=== PATIENT | male | born 1995 | race Caucasian/White ===

== ENCOUNTER 2022-08-27 01:10 | Emergency (ER) | payer MEDICAID, SELFPAY ==
[2022-08-27 01:14] VITALS: BP 155/101; PULSE 94; RESP 18; TEMP 36.6; O2SAT 94; BMI 29.3
[2022-08-27] MEDS: 0.9% Normal Saline 1,000 ML 999 ML IV (01:55)
[2022-08-27 02:20] LABS: Anion Gap 5 (5-15); BUN 16 mg/dL (7-18); BUN/Creat Ratio 11.5 RATIO (10-20); Calcium,Total 9.4 mg/dL (8.5-10.1); Chloride 107 mmol/L (98-107); Creatinine, Serum 1.39 mg/dL (0.70-1.30); EST Glomerular Filtration Rate 65 mL/min (>60); Est Glom Filt Rate - Afr Amer 78 mL/min (>60); Estimated Creatinine Clearance 92.81 ml/min; Glucose 104 mg/dL (74-106); Magnesium 2.6 mg/dL (1.6-2.6); Potassium 3.8 mmol/L (3.5-5.1); Sodium Level 140 mmol/L (136-145)
--- NOTE | 2022-08-27 02:54 | EDS_ITS ---
HPI History of Present Illness Chief Complaint: General Illness Informant: patient and EMS Narrative Narrative: Patient is a 26-year-old male with anxiety depression bipolar disorder and asthma. EMS states that he called them because he got into a verbal argument with his girlfriend and got kicked out of the car and he had been walking for 2 hours. They state that he was unable to get anyone to come pick him up and he felt like he was becoming dehydrated as he was exposed to the elements for the past 2 hours and with this has concern for dehydration and comes in for evaluation. Patient states that there is been no bouts of nausea vomiting or diarrhea and he denies any known sick contacts [facility] Medical History Anxiety Bipolar 1 disorder Depression Psychosis Home Medications albuterol sulfate 90 mcg/actuation breath activated powder inhaler 2 inh inhalation Q6H 08/27/22 [History Last Taken Unknown] fluticasone propionate 115 mcg-salmeterol 21 mcg/actuation HFA inhaler (Advair HFA) 2 inh inhalation Q12H 08/27/22 [History Last Taken Unknown] Allergy/AdvReac Type Severity Reaction Status Date / Time No Known Allergies Allergy Verified 08/27/22 02:19 Social History Smoking Status: Current every day smoker tobacco type: e-cigarettes ROS ROS ED Constitutional Constitutional ED: Denies chills or fever(s) ENT ENT ED: Denies sore throat Cardiovascular Cardiovascular: Denies chest pain Respiratory/Chest Respiratory/Chest: Denies cough or dyspnea Gastrointestinal Gastrointestinal: Denies abdominal pain, diarrhea, nausea or vomiting Genitourinary Genitourinary ED: Denies dysuria Musculoskeletal Musculoskeletal: Denies myalgias Integumentary Denies rash Neurologic Neurologic: Denies headache(s) Hematologic/Lymphatic Hematologic/Lymphatic: Denies easy bleeding or easy bruising EXAM Physical Exam Const Vital Signs: 08/27/22 01:14 08/27/22 01:18 Temperature 97.9 F Temperature Source Temporal Pulse Rate 94 Respiratory Rate 18 Respiratory Pattern Normal Blood Pressure 155/101 H Blood Pressure Mean 119 Pulse Ox 94 Oxygen Delivery Method Room Air Positive well nourished and well developed General Appearance ED: well developed HEENT HEENT Narrative: Mucous membranes are slightly dry and tacky No oral lesions airway edema or compromise No signs of infection in the posterior pharynx Eyes PERRL and EOMs intact bilaterally General Eye ED: Negative for scleral icterus Neck supple Resp normal respiratory effort and clear to auscultation bilaterally Cardio regular rate and regular rhythm Rate: other Other Details: Radial pulses are plus 2 out of 4 bilaterally are equal and symmetric GI normal to inspection, nondistended, normoactive bowel sounds, non-tender, non- distended and no masses GI Narrative: No voluntary guarding or rigidity no pulsatile mass or fluid wave Auscultation: normoactive bowel sounds Palpation: soft Extremity normal to inspection Neuro oriented x3 and CN's II-XII intact bilaterally Sensorium / Orientation: alert Psych Psych Narrative: Patient has a flat affect Skin no rashes or lesions noted and skin turgor normal General Skin Exam: Negative for jaundice MDM MDM MDM Narrative Medical decision making narrative: Patient presented to the ER with stable vitals and reported exposure to the elements but denied any recent nausea vomiting diarrhea. Differential diagnosis includes acute dehydration versus acute kidney injury versus electrolyte derangement. his exam shows mildly dry mucous membranes and with his concern for dehydration did elect to perform basic laboratory studies looking at electrolytes and kidney function. Creatinine is just slightly elevated at 1.39 which is consistent with mild dehydration but there are no electrolyte derangements. Therefore patient was given 1 L of IV fluid and as this would be sufficient to replace any volume loss from exposure he is otherwise safe for discharge. History & Record Review Discussion w/independent historian: EMS personnel and Patient Lab Data Attestation: I reviewed the patient's lab results. Labs: Laboratory Results - last 24 hr 08/27/22 01:40 Sodium 140 Potassium 3.8 Chloride 107 Carbon Dioxide 28.0 Anion Gap 5 BUN 16 Creatinine 1.39 H Estim Creat Clear Calc 92.81 Est GFR (MDRD) Af Amer 78 Est GFR (MDRD) Non-Af 65 BUN/Creatinine Ratio 11.5 Glucose 104 Calcium 9.4 Magnesium 2.6 Discharge Plan Triage Chief Complaint: General Illness ED Provider: Mauri Villanueva Dx/Rx/DC Orders Clinical Impression: Mild dehydration Instructions: Dehydration Prescriptions: No Action albuterol sulfate 90 mcg/actuation aerosol powdr breath activated 2 inh inhalation Q6H fluticasone propion-salmeterol [Advair HFA] 115-21 mcg/actuation HFA aerosol inhaler 2 inh inhalation Q12H Primary Care Provider: Maria A Rolle NP Referrals: Maria A Rolle NP, SOCIAL SERVICE ASSISTANT-C [Primary Care Provider] - Disposition Disposition: Home, Self Care Discharge Date/Time: 08/27/22 03:14
== END 2022-08-27 03:14 | disposition home or self-care (01) ==
PROVIDERS: Emergency Provider Emergency Medicine; PCP Nurse Practitioner Family; Visit Provider Emergency Medicine
DX: E86.0 Dehydration (principal); F17.290 Nicotine dependence, other tobacco product, uncomplicated
CPT/HCPCS: 80048; 83735

== ENCOUNTER 2022-08-27 05:55 | Emergency (ER) | payer MEDICAID, SELFPAY ==
[2022-08-27 05:55] VITALS: BP 114/97; PULSE 92; RESP 15; TEMP 36.4; O2SAT 98; BMI 29.8
--- NOTE | 2022-08-27 06:09 | EKG12_ITS ---
Test Reason : SYNCOPE Blood Pressure : / mmHG Vent. Rate : 057 BPM Atrial Rate : 057 BPM P-R Int : 134 ms QRS Dur : 082 ms QT Int : 420 ms P-R-T Axes : 022 064 030 degrees QTc Int : 408 ms Sinus bradycardia Otherwise normal ECG Confirmed by EL MONTILLA, ANNA ([id number]), graphics editor ALICIA DAMON ([id number]) on 08/28/2022 11:03:31 AM Referred By: Confirmed By:ANNA GALLEGOS MD
--- NOTE | 2022-08-27 06:09 | RAD_ITS ---
EXAM: XR CHEST, 2 VIEWS CLINICAL INDICATION: syncope TECHNIQUE: Frontal and lateral views of the chest. COMPARISON: No relevant prior studies available. FINDINGS: LUNGS AND PLEURAL SPACES: Unremarkable. No consolidation or edema. No pneumothorax. No effusion. HEART: Unremarkable. Cardiac silhouette not enlarged. MEDIASTINUM: Central airways and mediastinal contour are unremarkable. BONES/JOINTS: Unremarkable. SOFT TISSUES: Unremarkable. RAD/Chest PA and Lateral IMPRESSION: No radiographic evidence of acute cardiopulmonary disease. Electronically Signed: Kaylah Uriarte MD at 6:49 EDT ,
--- NOTE | 2022-08-27 07:00 | EX.ED.DYSGE1 ---
HPI History of Present Illness Chief Complaint: Syncope Informant: patient Narrative Narrative: Patient is a 26-year-old male with history of depression and anxiety and bipolar as well as asthma. He was seen earlier today after getting into a verbal argument with his girlfriend and being kicked out of the car and having to walk for 2 hours. He was concerned about dehydration at that time because of his element exposure and basic blood work was obtained which revealed no clinically significant findings and he was rehydrated 1 L of fluid. Patient was discharged and went to the waiting room as he did not have a ride. Patient states he was sitting in the waiting room for a few hours and he stood up and began to walk around when he started to feel lightheaded and dizzy and secondary to this checks back in for evaluation. He also reports he has now noticed some pain in his left wrist that worsens with extension [facility] Medical History Anxiety Bipolar 1 disorder Depression Psychosis Home Medications albuterol sulfate 90 mcg/actuation breath activated powder inhaler 2 inh inhalation Q6H 08/27/22 [History Last Taken Unknown] fluticasone propionate 115 mcg-salmeterol 21 mcg/actuation HFA inhaler (Advair HFA) 2 inh inhalation Q12H 08/27/22 [History Last Taken Unknown] Allergy/AdvReac Type Severity Reaction Status Date / Time No Known Allergies Allergy Verified 08/27/22 02:19 Social History Smoking Status: Current every day smoker tobacco type: e-cigarettes ROS ROS ED Constitutional Constitutional ED: Denies chills or fever(s) ENT ENT ED: Denies sore throat Cardiovascular Cardiovascular: Reports other Details: Positive lightheadedness/dizziness ; Denies chest pain, palpitations or racing heartbeat Respiratory/Chest Respiratory/Chest: Denies cough or dyspnea Gastrointestinal Gastrointestinal: Denies abdominal pain, diarrhea, nausea or vomiting Genitourinary Genitourinary ED: Denies dysuria Musculoskeletal Musculoskeletal: Reports other Details: Positive left wrist pain Integumentary Denies rash Neurologic Neurologic: Denies headache(s) Hematologic/Lymphatic Hematologic/Lymphatic: Denies easy bleeding or easy bruising EXAM Physical Exam Const Vital Signs: 08/27/22 05:55 08/27/22 05:58 Temperature 97.5 F L Temperature Source Temporal Pulse Rate 92 Respiratory Rate 15 Respiratory Effort Non-Labored Respiratory Pattern Normal Blood Pressure 114/97 H Blood Pressure Mean 102 Pulse Ox 98 Oxygen Delivery Method Room Air Positive well nourished and well developed General Appearance ED: well developed HEENT HEENT Narrative: Mucous membranes are slightly dry and tacky No airway edema or compromise No signs of infection in the posterior pharynx Eyes PERRL and EOMs intact bilaterally General Eye ED: Negative for scleral icterus Neck supple Neck Narrative: No nuchal rigidity or meningeal signs Resp normal respiratory effort and clear to auscultation bilaterally Cardio regular rate and regular rhythm Rate: other Other Details: Radial pulses are plus 2 out of 4 bilaterally are equal and symmetric GI normal to inspection, nondistended, normoactive bowel sounds, non-tender, non-distended and no masses Auscultation: normoactive bowel sounds Palpation: soft Extremity Extremity Narrative: No estimate edema no pitting edema negative Homans' sign bilaterally Left upper extremity is neurovascularly intact; AIN/PIN are intact and normal. No pain in the anatomical snuffbox. No bony deformity or joint effusion. There is increased pain with wrist extension. Neuro oriented x3 and CN's II-XII intact bilaterally Neuro Narrative: Cranial nerves II through XII are grossly intact there are no focal neurologic deficits. No pronator drift or dysmetria. No truncal ataxia. NIH stroke scale score of 0. Sensorium / Orientation: alert Psych Psych Narrative: Patient has a flat affect Skin no rashes or lesions noted MDM MDM MDM Narrative Medical decision making narrative: Patient reported a near syncopal event after sitting in the waiting room and getting up and walking. This is most consistent with POTS versus orthostatic hypotension. From his visit earlier we know his electrolytes and kidney function display no clinically significant findings. EKG reveals no acute cardiac abnormality and chest x-ray reveals no acute lung pathology or widening of the mediastinum. Patient also reports pain in his left wrist but he has no report of trauma or signs of injury and he is neurovascular intact and therefore do not feel he warrants an x-ray. At this time I do not feel there is need for repeat laboratory studies or IV hydration as vitals are stable and he was given 1 L of fluid with stable laboratory values just a few hours ago History & Record Review Discussion w/independent historian: Patient Radiography Diagnostic Testing: Clinical Impression(s) from Imaging Studies Chest X-Ray 08/27/22 06:09 IMPRESSION: No radiographic evidence of acute cardiopulmonary disease. Electronically Signed: Kaylah Uriarte MD at 6:49 EDT , Chest x-ray as interpreted by the emergency medicine physician reveals no acute infiltrate pneumothorax or pleural effusion Discharge Plan Triage Chief Complaint: Syncope ED Provider: Mauri Villanueva Dx/Rx/DC Orders Clinical Impression: Near syncope, Left wrist sprain Instructions: Dizziness Fainting Causes, ED Wrist Sprain Prescriptions: No Action albuterol sulfate 90 mcg/actuation aerosol powdr breath activated 2 inh inhalation Q6H fluticasone propion-salmeterol [Advair HFA] 115-21 mcg/actuation HFA aerosol inhaler 2 inh inhalation Q12H Primary Care Provider: Maria A Rolle NP Referrals: Maria A Rolle NP, EMAIL PRODUCER-C [Primary Care Provider] - Disposition Disposition: Home, Self Care
[2022-08-27 07:15] VITALS: BP 127/77; PULSE 62; RESP 15; O2SAT 98
== END 2022-08-27 07:16 | disposition home or self-care (01) ==
PROVIDERS: Emergency Provider Emergency Medicine; PCP Nurse Practitioner Family; Visit Provider Emergency Medicine
DX: R55 Syncope and collapse (principal); S63.92XA Sprain of unspecified part of left wrist and hand, initial encounter; F17.290 Nicotine dependence, other tobacco product, uncomplicated; E86.0 Dehydration
CPT/HCPCS: 71046; 80048; 83735; 93005; 96360; 99282; 99285

== ENCOUNTER 2022-08-27 15:00 | Emergency (ER) | payer MEDICAID, SELFPAY ==
[2022-08-27 15:01] VITALS: BP 159/89; PULSE 72; RESP 16; TEMP 35.8; O2SAT 99; BMI 30.8
--- NOTE | 2022-08-27 16:17 | EX.ED.VIS.PS ---
HPI HPI - Psych History of Present Illness Chief Complaint: Mental Health [facility] Medical History Anxiety Bipolar 1 disorder Depression Psychosis Home Medications albuterol sulfate 90 mcg/actuation breath activated powder inhaler 2 inh inhalation Q6H 08/27/22 [History Last Taken Unknown] fluticasone propionate 115 mcg-salmeterol 21 mcg/actuation HFA inhaler (Advair HFA) 2 inh inhalation Q12H 08/27/22 [History Last Taken Unknown] Allergy/AdvReac Type Severity Reaction Status Date / Time No Known Allergies Allergy Verified 08/27/22 02:19 Social History Smoking Status: Current every day smoker tobacco type: cigarettes and e-cigarettes EXAM Physical Exam Const Vital Signs: 08/27/22 15:01 Temperature 96.5 F L Temperature Source Temporal Pulse Rate 72 Respiratory Rate 16 Blood Pressure 159/89 H Blood Pressure Mean 112 Pulse Ox 99 Oxygen Delivery Method Room Air MDM MDM MDM Narrative Medical decision making narrative: HISTORY OF PRESENT ILLNESS: 26-year-old male here with concern for need for mental health medications. Patient states has been having bad thoughts for last several hours after getting into an argument with his GF. Denies history of suicidal attempt. Denies access to firearm. Denies any auditory or visual hallucinations. Denies any homicidal ideation. States he does not want hurt himself right now. States he does not have a specific plan. He notes he may take pills but denies have any access to pills as he is newly homeless after above mentioned argument with his girlfriend. REVIEW OF SYSTEMS: Pertinent positives: Suicidal thoughts Pertinent negatives: Homicidal ideation, visual hallucinations PHYSICAL EXAM: Nursing triage notes reviewed, Vital signs reviewed Constitutional: please see mdm HENT: MMM Eyes: Pupils equal round and reactive to light, Extraocular muscles intact Neck: No stridor, no JVD, full neck ROM Lungs: Clear to auscultation, No wheezing or rales. No increased work of breathing, no conversational dyspnea, no accessory muscle use, no nasal flaring. No respiratory distress noted Heart: Regular rate and rhythm, No murmurs, No rubs and No gallops, 2+ distal pulses (radial, femoral, posterior tibial) in all extremities Abdomen: Soft, there is no tenderness, rigidity, rebound or guarding, no obvious peritoneal signs, no palpable pulsatile abdominal masses, no auscultated abdominal bruit : No CVAT Extremities: No edema Neuro: No focal neurological deficits, cranial nerves II through XII intact, 5/5 strength in all extremities. Intact sensation to light touch in all extremities, 2+ reflexes bilateral patella tendons. Normal gait. No ataxia. Skin no rash or lesions noted Psych exam: Flat affect, not respond internal stimuli, goal-directed thought process MEDICAL DECISION MAKING: Chief Complaint: Suicidal thoughts External records reviewed: Third visit in last 24 hours. BMP showed no significant electrolyte abnormalities, anion gap, mild renal insufficiency, normal magnesium. Patient was discharged in stable condition. No psychiatric notes in the chart. Factors affecting care: Bipolar 1 disorder, Social determinants of health: Undomiciled, current smoker History obtained from others: none Consults: none ALL IMAGES (IF OBTAINED) HAVE BEEN PERSONALLY REVIEWED AND INTERPRETED BY MYSELF. MDM Narrative: Patient was hemodynamically stable, afebrile, nontoxic-appearing. Patient had no specific suicidal ideation or plan at this time due to contract of safety. The patient did not appear decompensated in any way. He is appropriate for outpatient psychiatric work-up. I have a strong suspicion for malingering this patient given his third ED (prior to patient did not mention suicidal ideation) visit and his undomiciled state that started today. On final evaluation patient contracted safety once again and admitted he would not hurt himself if he is discharged. I gave the patient local resources including homeless assisted as well as our local psychiatric services. Instructed patient to call psychiatric services tomorrow morning. Instructed return to ED if symptoms change or worsen or develop any specific suicidal ideations or thoughts. The patient and/or family, caregivers express understanding. The patient and/or family, caregivers agrees with the plan. Total critical care time today provided was at least 0 minutes. This excludes separately billable procedures. Critical care time (if documented) is secondary to the patient having high probability of clinically significant/life threatening deterioration in the patient's condition which required my urgent intervention. Shared decision making: I will have a discussion with the patient and or visitors regarding risk/benefits of further testing or admission. They will be made aware of of the risk/benefits inherent in this decision they will be given the opportunity to voice understanding. Discharge Plan Triage Chief Complaint: Mental Health ED Provider: Ole Garcia Dx/Rx/DC Orders Clinical Impression: Suicidal ideation Instructions: Suicide Recognize Own Warnings Prescriptions: No Action albuterol sulfate 90 mcg/actuation aerosol powdr breath activated 2 inh inhalation Q6H fluticasone propion-salmeterol [Advair HFA] 115-21 mcg/actuation HFA aerosol inhaler 2 inh inhalation Q12H Primary Care Provider: Maria A Rolle NP Referrals: Maria A Rolle NP, FAMILY NURSE-C [Primary Care Provider] - Activity Restrictions/Additional Instructions: Thank you for trusting us with your care today! Please take Tylenol (2 pills, 650 mg), ibuprofen (2 pills, 400 mg) every 6 hours as needed for pain and fever control. Please return to the emergency department if your symptoms change or worsen. Please follow with your primary care physician for further outpatient evaluation and management. If you have ongoing need for psychiatric versus please reach out to the counseling center at [place] in [facility] information as referenced below. Psychiatric Services Our services prescribe and monitor the use of medication as one way of dealing with serious symptoms that are part of many mental health troubles. We provide these services to center clients, upon a referral from their international broadcast music librarian. In some cases, the?psychiatric?service program assists with medication?education?and the administration of self-medication. The medication use today are very effective, and a significant percentage of individuals experience a reduction of symptoms and an increase in their quality of life?especially?when medications are combined with other treatments.? Direct Disposition Disposition: Home, Self Care
== END 2022-08-27 18:36 | disposition home or self-care (01) ==
PROVIDERS: Emergency Provider Emergency Medicine; PCP Nurse Practitioner Family; Visit Provider Emergency Medicine
DX: R45.851 Suicidal ideations (principal); F17.210 Nicotine dependence, cigarettes, uncomplicated; F17.290 Nicotine dependence, other tobacco product, uncomplicated
CPT/HCPCS: 99283